=== PATIENT | male | born 1985 | race Caucasian/White ===

== ENCOUNTER 2018-01-19 11:45 | Emergency (ER) | payer OTHER ==
[2018-01-19 12:00] VITALS: TEMP 98
--- NOTE | 2018-01-19 12:50 | ED ---
General Adult HPI - General Chief complaint: Psychiatric Symptoms Stated complaint: Mental Health Time Seen by Provider: 01/19/18 12:07 Source: patient, RN notes reviewed, old records reviewed Mode of arrival: ambulatory Limitations: no limitations - History of Present Illness Initial comments: This is a 52-year-old male the ER for evaluation. Patient presents today for evaluation regarding suicidal thoughts. History of psych abuse. No recent drugs rel call. Patient states that he committed attending to commit overdose about 2 weeks ago was unsuccessful. - Related Data Home Medications Medication Instructions Recorded Confirmed No Known Home Medications [No 01/19/18 01/19/18 Known Home Medications] Allergies Allergy/AdvReac Type Severity Reaction Status Date / Time No Known Allergies Allergy Verified 01/19/18 12:26 Review of Systems ROS Statement: Those systems with pertinent positive or pertinent negative responses have been documented in the HPI. ROS Other: All systems not noted in ROS Statement are negative. Past Medical History Past Medical History: No Reported History History of Any Multi-Drug Resistant Organisms: None Reported Past Surgical History: No Surgical Hx Reported Past Psychological History: Depression Smoking Status: Current every day smoker Past Alcohol Use History: None Reported Past Drug Use History: None Reported General Exam Limitations: no limitations General appearance: alert, in no apparent distress Head exam: Present: atraumatic, normocephalic, normal inspection Eye exam: Present: normal appearance, PERRL, EOMI. Absent: scleral icterus, conjunctival injection, periorbital swelling ENT exam: Present: normal exam, mucous membranes moist Neck exam: Present: normal inspection. Absent: tenderness, meningismus, lymphadenopathy Respiratory exam: Present: normal lung sounds bilaterally. Absent: respiratory distress, wheezes, rales, rhonchi, stridor Cardiovascular Exam: Present: regular rate, normal rhythm, normal heart sounds. Absent: systolic murmur, diastolic murmur, rubs, gallop, clicks GI/Abdominal exam: Present: soft, normal bowel sounds. Absent: distended, tenderness, guarding, rebound, rigid Extremities exam: Present: normal inspection, full ROM, normal capillary refill. Absent: tenderness, pedal edema, joint swelling, calf tenderness Back exam: Present: normal inspection Neurological exam: Present: alert, oriented X3, CN II-XII intact Psychiatric exam: Present: normal affect, normal mood Skin exam: Present: warm, dry, intact, normal color. Absent: rash Course Vital Signs 01/19/18 11:56 Temperature 98 F Pulse Rate 85 Respiratory 16 Rate Blood Pressure 155/83 O2 Sat by Pulse 98 Oximetry - Reevaluation(s) Reevaluation #1: 01/19/18 12:50 Patient medically clear for psychiatric evaluation Medical Decision Making - Medical Decision Making 32 male seen evaluated with psychiatry, patient no longer homicidal or suicidal , no drugs or alcohol, patient safe for discharge - Lab Data Lab Results 01/19/18 Range/Units 12:16 Urine Opiates Screen Not Detected (NotDetected) Ur Oxycodone Screen Not Detected (NotDetected) Urine Methadone Screen Not Detected (NotDetected) Ur Propoxyphene Screen Not Detected (NotDetected) Ur Barbiturates Screen Not Detected (NotDetected) U Tricyclic Antidepress Not Detected (NotDetected) Ur Phencyclidine Scrn Not Detected (NotDetected) Ur Amphetamines Screen Detected H (NotDetected) U Methamphetamines Scrn Not Detected (NotDetected) U Benzodiazepines Scrn Not Detected (NotDetected) Urine Cocaine Screen Not Detected (NotDetected) U Marijuana (THC) Screen Detected H (NotDetected) Disposition Clinical Impression: Depression Disposition: HOME SELF-CARE Condition: Fair Instructions: Depression (ED) Is patient prescribed a controlled substance at d/c from ED?: No Referrals: None,Stated [Primary Care Provider] - 1-2 days
[2018-01-19 13:18] LABS: Amphetamine Screen,Urine Detected (NotDetected); Barbiturate Screen,Urine Not Detected (NotDetected); Benzodiazepines Screen,Urine Not Detected (NotDetected); Cocaine Screen,Urine Not Detected (NotDetected); Methadone Screen, Urine Not Detected (NotDetected); Opiate Screen,Urine Not Detected (NotDetected); Oxycodone Screen, Urine Not Detected (NotDetected); Phencyclidine Screen,Urine Not Detected (NotDetected); Tricyclic Antidepressant,Urine Not Detected (NotDetected); Urn Cannabinoid Scrn Detected (NotDetected)
[2018-01-19 14:55] VITALS: BP 114/71; PULSE 66; RESP 18
== END 2018-01-19 14:55 | disposition home or self-care (01) ==
LOC: EC 11:45
DX: F32.9 Major depressive disorder, single episode, unspecified (principal); R45.851 Suicidal ideations; F17.200 Nicotine dependence, unspecified, uncomplicated
CPT/HCPCS: 80306; 82075; 99284

== ENCOUNTER 2019-07-12 16:28 | Emergency (ER) | payer OTHER ==
[2019-07-12 16:45] VITALS: RESP 18
[2019-07-12] MEDS ORDERED: IBUPROFEN 600 MG TAB PO STA (16:54)
[2019-07-12] MEDS ORDERED: LIDOCAINE 1% INJ 10MG/ML (20 ML MDV) SQ ONE (16:54)
[2019-07-12] MEDS ORDERED: DIPH,PERTUS(ACELL)TETVAC-LF 0.5 ML VIAL IM ONE (17:00)
[2019-07-12] MEDS ORDERED: GELATIN SPONGE,ABSORB (LARGE) 1 EACH SPONGE TOPICAL STA (17:00)
--- NOTE | 2019-07-12 17:05 | ED ---
General Adult HPI - General Chief complaint: Wound/Laceration Stated complaint: finger lac-[facility] Time Seen by Provider: 07/12/19 16:50 Source: patient, EMS Mode of arrival: ambulatory Limitations: no limitations - History of Present Illness Initial comments: Patient is a 34-year-old male presenting to the emergency department with a chief complaint of a laceration. Patient reports that he was cutting using a knife when he lacerated the distal aspect of his left second digit. Patient reports the pain as a 7 on time. Patient does report active bleeding. Patient is on a blood thinners. Patient denies taking medication to alleviate the symptoms. Patient has full range of motion. Patient reports there is part of the nail bed is also cut when the accident occurred. - Related Data Home Medications Medication Instructions Recorded Confirmed No Known Home Medications 01/19/18 01/19/18 Allergies Allergy/AdvReac Type Severity Reaction Status Date / Time No Known Allergies Allergy Verified 01/19/18 12:26 Review of Systems ROS Statement: Those systems with pertinent positive or pertinent negative responses have been documented in the HPI. ROS Other: All systems not noted in ROS Statement are negative. Past Medical History Past Medical History: No Reported History History of Any Multi-Drug Resistant Organisms: None Reported Past Surgical History: No Surgical Hx Reported Past Psychological History: Depression Smoking Status: Current every day smoker Past Alcohol Use History: Occasional Past Drug Use History: Marijuana General Exam - General Exam Comments Initial Comments: General: Well-developed well-nourished distress HEENT: Normocephalic/atraumatic, PERLL, pharynx erythema, swallowing well, EAC no erythema, no exudates, TM clear, no cervical lymph nodes Neck: Supple, nontender, trachea midline Chest/Lungs: Normal respirations, no signs of respiratory distress clear to auscultation bilaterally no wheezes, rales, rhonchi Cardiac: Regular rate and rhythm, normal S1-S2, no murmurs rubs or gallops Abdomen/GI: Soft nontender, bowel sounds equal or quadrant x4, no guarding, no rebound no CVA tenderness Musculoskeletal: Avulsion of the distal end of the left second digit, active bleeding at at this time, patient has full range of motion, normal capillary refill, Skin: Warmth, no rashes or lesions, no cyanosis or diaphoresis Neurologic: AAO x 3, CN 2-12 intact, Psychiatric: Mood and affect normal, judgment normal Limitations: no limitations Course Vital Signs 07/12/19 16:39 Temperature 98.5 F Pulse Rate 94 Respiratory 18 Rate Blood Pressure 138/73 O2 Sat by Pulse 98 Oximetry Medical Decision Making - Medical Decision Making Patient is a 34-year-old male presenting to emergency Department with a chief complaint of a cut on the finger. Based on physical examination this appears to be an avulsion to the distal aspect of the left second digit. Patient is neurovascularly intact. There is active bleeding at this time. Small part of the nail is also removed at the site of avulsion. The remaining nail is firmly intact on the nail bed. Patient given tetanus prophylaxis. Gelfoam applied to the region. No need for sutures at this time. Patient given strict wound care instructions. Patient also given digital nerve block to alleviate some of the pain.. Strict return parameters were thoroughly discussed with patient is understanding and agreeable. Case discussed physician. Disposition Clinical Impression: Skin avulsion Disposition: HOME SELF-CARE Condition: Stable Instructions (If sedation given, give patient instructions): Nail Avulsion (ED) Additional Instructions: Please return to emergency department is symptoms worsen. Alternate between Tylenol and ibuprofen for pain control. Please follow proper wound care structures. Is patient prescribed a controlled substance at d/c from ED?: No Referrals: None,Stated [Primary Care Provider] - 1-2 days Time of Disposition: 17:04
[2019-07-12] MEDS ORDERED: HYDROcodone/APAP 5-325MG 1 EACH TAB PO STA (17:45)
[2019-07-12 18:06] VITALS: BP 130/74; PULSE 78; TEMP 98
== END 2019-07-12 18:06 | disposition home or self-care (01) ==
LOC: EC 16:28
DX: S61.301A Unspecified open wound of left index finger with damage to nail, initial encounter (principal); F17.200 Nicotine dependence, unspecified, uncomplicated; W26.0XXA Contact with knife, initial encounter; Y93.89 Activity, other specified; Y92.69 Other specified industrial and construction area as the place of occurrence of the external cause; Y99.0 Civilian activity done for income or pay
CPT/HCPCS: 90715; 99283; 64450; 90471; J2001

== ENCOUNTER 2025-01-30 13:33 | Emergency (ER) | payer OTHER ==
[2025-01-30 13:39] VITALS: TEMP 98.2
--- NOTE | 2025-01-30 14:10 | ED ---
General Adult HPI - General Chief complaint: Neuro Symptoms/Deficit Stated complaint: Numbness/Sent from Urgent Care Time Seen by Provider: 01/30/25 13:45 Source: patient, RN notes reviewed Mode of arrival: ambulatory Limitations: no limitations - History of Present Illness Initial comments: 39-year-old male with no reported past medical history presenting to the ER for evaluation of bilaterally hand numbness. Patient states yesterday around 1430/1445 [address] home from work he started to experience bilateral upper extremity numbness and "locking up" sensation. He states he pulled around the side of the road and attempted to call his boss. He states the "locking up sensation did travel to bilateral lower extremities and he also was experiencing slow speech at that time. Patient then called his who stated symptoms lasted for approximately 1 hour. She states throughout that hour she was talking to patient and instructed him to go to the gas station to get a snack as he did not eat anything throughout the day and was working outside. Upon getting home states patient was "back to normal". Patient denies any di zziness, lightheadedness, chest pain, shortness of breath during incident. Patient reports since incident he has had no reoccurrence of this and has not had prior episodes in the past. reports patient does not follow-up with a PCP. Patient denies any current headache, dizziness, lightheadedness, nausea, vomiting, chest pain, shortness of breath, paresthesias to bilateral upper or lower extremities, weakness, slurred speech or facial droop. - Related Data Home Medications Medication Instructions Recorded Confirmed No Known Home Medications 01/19/18 01/19/18 Allergies Allergy/AdvReac Type Severity Reaction Status Date / Time No Known Allergies Allergy Verified 01/19/18 12:26 Review of Systems ROS Statement: Those systems with pertinent positive or pertinent negative responses have been documented in the HPI. ROS Other: All systems not noted in ROS Statement are negative. Past Medical History Past Medical History: No Reported History History of Any Multi-Drug Resistant Organisms: None Reported Past Surgical History: No Surgical Hx Reported Past Psychological History: Depression Smoking Status: Current every day smoker Past Alcohol Use History: Occasional Past Drug Use History: Marijuana General Exam Limitations: no limitations General appearance: alert, in no apparent distress Head exam: Present: atraumatic, normocephalic, normal inspection Eye exam: Present: normal appearance, PERRL, EOMI. Absent: scleral icterus, conjunctival injection, periorbital swelling Pupils: Present: normal accommodation ENT exam: Present: normal oropharynx, mucous membranes moist, TM's normal bilaterally, normal external ear exam Neck exam: Present: normal inspection. Absent: tenderness, meningismus, lymphadenopathy Respiratory exam: Present: normal lung sounds bilaterally. Absent: respiratory distress, wheezes, rales, rhonchi, stridor Cardiovascular Exam: Present: regular rate, normal rhythm, normal heart sounds. Absent: systolic murmur, diastolic murmur, rubs, gallop, clicks Extremities exam: Present: normal inspection, full ROM, normal capillary refill. Absent: tenderness, pedal edema, joint swelling, calf tenderness Neurological exam: Present: alert, oriented X3, CN II-XII intact, other (NIH 0) Skin exam: Present: warm, dry, intact, normal color. Absent: rash Course Vital Signs 01/30/25 01/30/25 13:35 16:37 Temperature 98.2 F Pulse Rate 75 56 L Respiratory 20 18 Rate Blood Pressure 131/79 115/77 O2 Sat by Pulse 99 96 Oximetry Medical Decision Making - Medical Decision Making Was pt. sent in by a medical professional or institution (, PA, BEAUTY SALES ADVISOR, urgent care, hospital, or assisted...) When possible be specific @ -Patient sent by urgent care for evaluation of extremity numbness Did you speak to anyone other than the patient for history (EMS, parent, family, police, friend...)? What history was obtained from this source @ -, bedside, aiding in HPI past medical history Did you review nursing and triage notes (agree or disagree)? Why? @ -I reviewed and agree with nursing and triage notes Were old charts reviewed (outside hosp., previous admission, EMS record, old EKG, old radiological studies, urgent care reports/EKG's, assisted records)? Report findings @ -No old charts were reviewed Differential Diagnosis (chest pain, altered mental status, abdominal pain women, abdominal pain men, vaginal bleeding, weakness, fever, dyspnea, syncope, headache, dizziness, GI bleed, back pain, seizure, CVA, palpatations, mental health, musculoskeletal)? @ -Differential Altered Mental Status:Hypoglycemia, DKA, hypercapnia, ETOH, overdose, CO poisoning, trauma, myxedema coma, HTN encephalopathy, infection, encephalitis, psychosis, intercranial hemorrhage, hepatic encephalopathy, meningitis, CVA, this is not meant to be an all-inclusive list EKG interpreted by me (3pts min.). @ -As above X-rays interpreted by me (1pt min.). @ -None done CT interpreted by me (1pt min.). @ -CT brain negative for acute intracranial hemorrhage or mass effect. Mild generalized atrophy. Deviation of nasal septum to right. U/S interpreted by me (1pt. min.). @ -None done What testing was considered but not performed or refused? (CT, X-rays, U/S, labs )? Why? @ -None What meds were considered but not given or refused? Why? @ -None Did you discuss the management of the patient with other professionals (professionals i.e. , PA, BEAUTY SALES ADVISOR, lab, RT, psych nurse, social services manager, family lawyer, teacher, biosecurity officer, case hardener)? Give summary @ -No Was smoking cessation discussed for >3mins.? @ -No Was critical care preformed (if so, how long)? @ -No Were there social determinants of health that impacted care today? How? (Homelessness, low income, unemployed, alcoholism, drug addiction, transportation, low edu. Level, literacy, decrease access to med. care, half-way, rehab)? @ -No Was there de-escalation of care discussed even if they declined (Discuss DNR or withdrawal of care, Hospice)? DNR status @ -No What co-morbidities impacted this encounter? (DM, HTN, Smoking, COPD, CAD, Cancer, CVA, ARF, Chemo, Hep., AIDS, mental health diagnosis, sleep apnea, morbid obesity)? @ -None Was patient admitted / discharged? Hospital course, mention meds given and route, prescriptions, significant lab abnormalities, going to OR and other pertinent info. @ -Discharge.39-year-old male presented the ER for evaluation of bilateral hand numbness. Patient denies any current symptoms, symptoms occurred yesterday for approximately 1 hour. Vitals within acceptable limits. No acute neurological findings on exam. NIH 0. Laboratory studies obtained unimpressive. CT brain with marked generalized atrophy no acute intracranial hemorrhage or midline shift. Marked right sided nasal septum deviation. Patient reports history of nose injury. EKG showing a sinus bradycardia with sinus arrhythmia. Inverted T waves lead III. Patient provided with IV fluids. Upon reevaluation, patient resting comfortably on stretcher no signs of acute distress. No reported recurrent of symptoms. Results discussed with patient and , at bedside, all questions answered. I advised close follow-up with PCP for reevaluation. Return parameters discussed. Patient verbally expressed understanding agree with care plan. Case discussed with ED attending, Dr. Ellis. Undiagnosed new problem with uncertain prognosis? @ -No Drug Therapy requiring intensive monitoring for toxicity (Heparin, Nitro, Insulin, Cardizem)? @ -No Were any procedures done? @ -No Diagnosis/symptom? @ -Bilateral hand numbness Acute, or Chronic, or Acute on Chronic? @ -Acute Uncomplicated (without systemic symptoms) or Complicated (systemic symptoms)? @ -Uncomplicated Side effects of treatment? @ -No Exacerbation, Progression, or Severe Exacerbation? @ -No Poses a threat to life or bodily function? How? (Chest pain, USA, GA, pneumonia, PE, COPD, DKA, ARF, appy, cholecystitis, CVA, Diverticulitis, Homicidal, Suicidal, threat to staff... and all critical care pts) @ -Low - Lab Data Result diagrams: 01/30/25 14:31 01/30/25 14:31 Lab Results 01/30/25 01/30/25 Range/Units 14:31 14:31 WBC 5.82 (4.50-10.00) 10*3/uL RBC 5.13 (4.40-5.60) 10*6/uL Hgb 14.7 (13.0-17.0) g/dL Hct 42.3 (39.6-50.0) % MCV 82.5 (80.0-97.0) fL MCH 28.7 (27.0-32.0) pg MCHC 34.8 (32.0-37.0) g/dL Plt Count 312 (140-440) 10*3/uL MPV 11.0 (9.5-12.2) fL Immature Gran % (Auto) 0.2 % Neutrophils % 65.0 % Lymphocytes % 25.8 % Monocytes % 6.5 % Eosinophils % 1.0 % Basophils % 1.5 % Immature Gran # 0.01 (0.00-0.04) 10*3/uL Neutrophils # 3.78 (1.80-7.70) 10*3/uL Lymphocytes # 1.50 (0.90-5.00) 10*3/uL Monocytes # 0.38 (0.20-1.00) 10*3/uL Eosinophils # 0.06 (0.04-0.35) 10*3/uL Basophils # 0.09 (0.00-0.10) 10*3/uL Sodium 137 (137-145) mmol/L Potassium 4.5 (3.5-5.1) mmol/L Chloride 105 (98-107) mmol/L Carbon Dioxide 24 (22-30) mmol/L Anion Gap 8 mmol/L BUN 12 (9-20) mg/dL Creatinine 0.81 (0.66-1.25) mg/dL Est GFR (CKD-EPI)AfAm >90 (>60 ml/min/1.73 sqM) Est GFR (CKD-EPI)NonAf >90 (>60 ml/min/1.73 sqM) Glucose 114 H (74-99) mg/dL Calcium 10.2 (8.4-10.2) mg/dL Magnesium 1.9 (1.6-2.3) mg/dL Total Bilirubin 1.0 (0.2-1.3) mg/dL AST 38 (17-59) U/L ALT 24 (4-49) U/L Alkaline Phosphatase 65 (38-126) U/L Total Protein 7.6 (6.3-8.2) g/dL Albumin 4.8 (3.5-5.0) g/dL - EKG Data -: EKG Interpreted by Me EKG Comments: EKG taken at 16: 24 showing a sinus bradycardia with sinus arrhythmia. T wave inversions lead III. No ST segment elevations. Ventricular rate 46, parable 198, QRS duration 106, QT/QTc 439/397. - Radiology Data Radiology results: report reviewed, image reviewed Disposition Clinical Impression: Bilateral hand numbness Disposition: HOME SELF-CARE Condition: Stable Additional Instructions: Follow-up with PCP. Return to the ER for any new or worsening concerns. Is patient prescribed a controlled substance at d/c from ED?: No Referrals: Liberty Vargas MD [Primary Care Provider] - 1-2 days Time of Disposition: 16:37
[2025-01-30 14:59] LABS: Basophils # (A) 0.09 10*3/uL (0.00-0.10); Basophils % (A) 1.5 %; Eosinophils # (A) 0.06 10*3/uL (0.04-0.35); HCT 42.3 % (39.6-50.0); HGB 14.7 g/dL (13.0-17.0); Lymphocytes % (A) 25.8 %; MCH 28.7 pg (27.0-32.0); MCHC 34.8 g/dL (32.0-37.0); MCV 82.5 fL (80.0-97.0); Monocytes # (A) 0.38 10*3/uL (0.20-1.00); Monocytes % (A) 6.5 %; Neutrophils # (A) 3.78 10*3/uL (1.80-7.70); Platelet Count 312 10*3/uL (140-440); RBC 5.13 10*6/uL (4.40-5.60); RDW 12.7 % (11.5-14.5); WBC 5.82 10*3/uL (4.50-10.00)
[2025-01-30] MEDS: SODIUM CHLORIDE 0.9% 1,000 ML IV ONE (15:01)
[2025-01-30 15:19] LABS: ALT 24 U/L (4-49); African American GFR (CKD) >90 (>60 ml/min/1.73 sqM); Anion Gap 8 mmol/L; Blood Urea Nitrogen 12 mg/dL (9-20); Calcium 10.2 mg/dL (8.4-10.2); Carbon Dioxide 24 mmol/L (22-30); Chloride 105 mmol/L (98-107); Glucose 114 mg/dL (74-99); Non-African American GFR(CKD) >90 (>60 ml/min/1.73 sqM); Sodium 137 mmol/L (137-145)
[2025-01-30 15:39] LABS: AST 38 U/L (17-59); Albumin 4.8 g/dL (3.5-5.0); Alkaline Phosphatase 65 U/L (38-126); Magnesium 1.9 mg/dL (1.6-2.3); Potassium 4.5 mmol/L (3.5-5.1); Total Protein 7.6 g/dL (6.3-8.2)
--- NOTE | 2025-01-30 15:47 | CT ---
EXAMINATION TYPE: CT brain wo con DATE OF EXAM: 01/30/2025 COMPARISON: None CLINICAL INDICATION: Male, 39 years old with history of jose hand locking up headache; PHH, started at 1430 yesterday with numbness/weakness, slurred speech, facial droop to left side CT DLP: 1170.8 mGycm Automated exposure control for dose reduction was used. Findings: The ventricles, basal cisterns and sulci over convexities are mildly enlarged consistent with mild ge neralized atrophy. There is no mass effect or shift of midline structures. No abnormal density is seen throughout the brain parenchyma. There is no acute intra or extra-axial hemorrhage. The posterior fossa including the brainstem, fourth ventricle and cerebellar pontine angles appear no rmal. Intraorbital contents appear normal and symmetric. Visualized paranasal sinuses and mastoid air cells are well aerated. There is marked deviation of nasal septum to the right. The calvarium is intact. IMPRESSION: 1. No acute bleed or mass effect. 2. Mild generalized atrophy. 3. Marked deviation of the nasal septum to the right [facility], , 01/30/2025 3:44 PM
[2025-01-30 16:38] VITALS: BP 115/77; PULSE 56; RESP 18
== END 2025-01-30 16:43 | disposition home or self-care (01) ==
LOC: EC 13:33
DX: R20.0 Anesthesia of skin (principal); I49.8 Other specified cardiac arrhythmias; J34.2 Deviated nasal septum; F17.200 Nicotine dependence, unspecified, uncomplicated
CPT/HCPCS: 36415; 70450; 80053; 83735; 85025; 93005; 96360; 99284